=== PATIENT | female | born 1950 | race Caucasian/White ===

== ENCOUNTER 2017-06-05 18:51 | Inpatient (IN) | payer OTHER ==
[~2017-06-05] VITALS: Ht 167.6 cm; Wt 91.6 kg
[~2017-06-05 18:51] MED LIST: AMARYL4 MG PO; AMLODIPINE BESYL5 MG PO; ASPRIN; ATORVASTATIN CA40 MG PO; AZITHROMYCIN250 MG1 PO; AZULFIDINE500 MG PO; B-121000 MC2 PO; BACTRIM,SEPT1 TABLET PO; BUTALB-APAP-CA1 EACH PO; CALCIUM; CARVEDILOL12.5 MG PO; CIPRO500 MG PO; CLOPIDOGREL75 MG PO; CYANOCOBALAM1000 MCG PO; DOXEPIN HCL25 MG PO; DOXYCYCLINE HY100 MG PO; ENBREL50 MG/1 ML SC; ETANERCEPT; FOLIC ACID0.8 M1 PO; HYDROXYCHLOROQ200 MG PO; HYZAAR 100-12.1 EACH PO; JANUVIA25 M1 PO; LANTUS 10100 UNITS/ SC; LANTUS 10100 UNITS/ SQ; LANTUS 3 M100 UNITS1 SC; LANTUS INSULIN; LEVOTHYROXINE150 MCG PO; LEVOTHYROXINE175 MCG PO; LO-DOSE ASPIRIN81 M1 PO; LOSARTAN POTAS100 MG PO; MAALOX ADVANCE1 EACH PO; METOPROLOL TART25 MG PO; NITROFURANTOIN100 MG PO; NITROGLYCERIN0.4 MG PO; NITROSTAT0.4 MG SL; NORVASC2.5 MG PO; NORVASC5 MG PO; NOVOLOG PE100 UNITS/ SC; NYSTATIN15 GM TP; OMEPRAZOLE20 M2 PO; PANTOPRAZOLE SO40 MG PO; PLAQUENIL200 MG PO; PRAVASTATIN SOD40 MG PO; PREDNISOLONE5 MG PO; QUINAPRIL HCL40 MG PO; ROSUVASTATIN CA40 MG PO; SKELAXIN400 M1 PO; SPIRONOLACTONE25 MG PO; SULFASALAZINE500 MG PO; SYNTHROID100 MCG PO; SYNTHROID175 MCG PO; SYNTHROID300 MCG PO; TERCONAZOLE45 GM VG; TESSALON PERLE100 MG PO; TRAMADOL HCL50 MG PO; VITAMIN B-6100 MG PO; VITAMIN B-6250 MG PO; VITAMIN C1000 MG PO; VITAMIN D31000 UNIT PO; ZARXIO300 MCG/0. SC; ZARXIO300 MCG/0. SQ; ZOCOR40 MG PO; ZOFRAN4 MG PO; ZOFRAN8 MG PO; vitamin b-12 PO; vitamin b-6 PO
[2017-06-05 20:20] LABS: HEMATOCRIT 27.6 % (36.0-46.0); MCH 34.1 PG (29.0-34.0); MCHC 33.3 G/DL (30.0-36.0); MCV 102.2 FL (83-99); MEAN PLAT.VOLUME 11.2 uM^3 (9.5-12.4); PLATELET COUNT 135 K/uL (156-360); RBC DIS.WIDTH-CV 15.4 % (11.8-14.6); WHITE BLOOD COUNT 17.7 K/uL (4.1-10.2)
[2017-06-05 20:57] LABS: TROP-I INTERPRETATION NEGATIVE; TROPONIN-I 0.03 ng/mL (0.0-0.30)
[2017-06-05 21:54] LABS: CHLORIDE 110 mEq/L (99-109); POTASSIUM 4.5 mEq/L (3.7-5.4); SODIUM 141 mEq/L (136-147)
[2017-06-05 21:56] LABS: GLUCOSE 119 mg/dL (70-99)
[2017-06-05 21:57] LABS: ANION GAP 9 MEQ/L (2-14)
[2017-06-05 22:00] LABS: GFR ESTIMATE (CALCULATED) 28 mL/min/
[2017-06-05 22:01] LABS: UREA NITROGEN (BUN) 19 mg/dL (9-23)
[2017-06-05 22:11] LABS: POINT-OF-CARE METER ID UU13113702
[2017-06-05] MEDS ORDERED: ZANTAC150 MG PO (23:31)
[2017-06-06 03:12] LABS: TROP-I INTERPRETATION NEGATIVE; TROPONIN-I 0.05 ng/mL (0.0-0.30)
[2017-06-06 04:16] VITALS: BP 149/72
[2017-06-06 07:44] VITALS: BP 153/70
[2017-06-06 07:50] LABS: POINT-OF-CARE METER ID UU14174225
[2017-06-06 11:47] VITALS: BP 133/69
[2017-06-06 15:42] VITALS: BP 126/66
[2017-06-06 17:21] LABS: POINT-OF-CARE METER ID UU13113717
[2017-06-06 20:00] VITALS: BP 130/60
[2017-06-06 20:53] LABS: POINT-OF-CARE METER ID UU13113717
[2017-06-06 23:50] VITALS: BP 125/65
[2017-06-07] VITALS (7 sets, daily range): BP systolic 121–171; BP diastolic 59–84
[2017-06-07 04:10] LABS: HEMATOCRIT 25.9 % (36.0-46.0); MCH 33.6 PG (29.0-34.0); MCHC 32.4 G/DL (30.0-36.0); MCV 103.6 FL (83-99); MEAN PLAT.VOLUME 11.4 uM^3 (9.5-12.4); PLATELET COUNT 112 K/uL (156-360); RBC DIS.WIDTH-CV 15.8 % (11.8-14.6); RBC DIS.WIDTH-SD 60.8 % (39-53); WHITE BLOOD COUNT 17.2 K/uL (4.1-10.2)
[2017-06-07 04:21] LABS: CHLORIDE 107 mEq/L (99-109); POTASSIUM 4.5 mEq/L (3.7-5.4); SODIUM 138 mEq/L (136-147)
[2017-06-07 04:24] LABS: ANION GAP 5 MEQ/L (2-14)
[2017-06-07 04:26] LABS: GFR ESTIMATE (CALCULATED) 24 mL/min/
[2017-06-07 04:27] LABS: UREA NITROGEN (BUN) 25 mg/dL (9-23)
[2017-06-07 04:30] LABS: GLUCOSE 51 mg/dL (70-99)
[2017-06-07 04:31] LABS: TROP-I INTERPRETATION POSITIVE; TROPONIN-I 1.35 ng/mL (0.0-0.30)
[2017-06-07 07:02] LABS: INTER. NORMALIZED RATIO 1.2; PROTHROMBIN TIME 12.7 SEC (10.2-12.9)
[2017-06-07 07:04] LABS: PTT 30.6 SEC (25-37)
[2017-06-07 07:34] LABS: POINT-OF-CARE METER ID UU13113717
[2017-06-07 08:16] LABS: POINT-OF-CARE METER ID UU13113717
[2017-06-07 10:26] LABS: POINT-OF-CARE METER ID UU13113717
[2017-06-07 11:05] LABS: ADD MIUA? YES; BILIRUBIN NEGATIVE; BLOOD NEGATIVE; COLOR YELLOW ((YELLOW)); GLUCOSE (STRIP) NEGATIVE; KETONES NEGATIVE; LEUKOCYTES NEGATIVE; NITRITE NEGATIVE; PROTEIN (STRIP) 100; SPECIFIC GRAVITY 1.008 (1.000-1.030); UROBILINOGEN 0.2 MG/DL (0.2-1.0)
[2017-06-07 11:14] LABS: BACTERIA NONE SEEN /HPF; EPITHELIAL CELLS RARE /HPF; MUCUS TRACE /LPF; RED BLOOD CELLS 20-30 /HPF (0-5); UCUL ADDED? YES
[2017-06-07 11:38] LABS: TROP-I INTERPRETATION POSITIVE; TROPONIN-I 0.96 ng/mL (0.0-0.30)
[2017-06-07 11:57] LABS: POINT-OF-CARE METER ID UU13113717
[2017-06-07 15:41] LABS: POINT-OF-CARE METER ID UU14188625
[2017-06-07 16:41] LABS: TROP-I INTERPRETATION POSITIVE
[2017-06-07 16:42] LABS: TROPONIN-I 0.78 ng/mL (0.0-0.30)
[2017-06-07 21:20] LABS: POINT-OF-CARE METER ID UU14188625
[2017-06-07 23:53] LABS: POINT-OF-CARE METER ID UU14188625
[2017-06-08 03:27] VITALS: BP 126/58
[2017-06-08 05:47] LABS: POINT-OF-CARE METER ID UU13113717
[2017-06-08 07:52] VITALS: BP 130/62
[2017-06-08 10:47] LABS: ANION GAP 11 MEQ/L (2-14); CHLORIDE 103 MEQ/L (99-109); GFR ESTIMATE (CALCULATED) 22 mL/min/; POTASSIUM 4.7 MEQ/L (3.7-5.4); SAMPLE HEMOLYSIS CHECK 0; SAMPLE ICTERIC CHECK 0; SAMPLE LIPEMIA CHECK 0; SODIUM 137 MEQ/L (136-147); UREA NITROGEN (BUN) 27 mg/dL (9-23)
[2017-06-08 10:48] LABS: GLUCOSE 198 mg/dL (70-99)
[2017-06-08 12:47] VITALS: BP 122/63
[2017-06-08 13:30] LABS: POINT-OF-CARE METER ID UU13113717
[2017-06-08 15:19] LABS: POINT-OF-CARE METER ID UU13113717
[2017-06-08 15:52] VITALS: BP 162/77
[2017-06-08 17:50] LABS: POINT-OF-CARE METER ID UU13113717
[2017-06-08 19:46] VITALS: BP 112/53
[2017-06-08 21:47] LABS: POINT-OF-CARE METER ID UU13113717
[2017-06-08 23:45] VITALS: BP 108/58
[2017-06-09 04:10] VITALS: BP 133/71
[2017-06-09 08:24] LABS: POINT-OF-CARE METER ID UU13113717
[2017-06-09 08:48] VITALS: BP 101/54
[2017-06-09 08:52] LABS: POINT-OF-CARE METER ID UU14188625
[2017-06-09 10:05] LABS: POINT-OF-CARE METER ID UU14188625
[2017-06-09 12:06] VITALS: BP 109/56
[2017-06-09 13:09] LABS: EOSINOPHIL (%) 0 % (0-5); HEMATOCRIT 24.5 % (36.0-46.0); IMMATURE GRANULOCYTE (%) 0.9 % (0.0-0.7); IMMATURE GRANULOCYTE COUNT 0.2 K/uL; INSTRUMENT ABS NEUTROPHIL CT 19.6 K/uL; LYMPHOCYTE COUNT 0.8 K/uL (1.0-2.8); MCHC 33.5 G/DL (30.0-36.0); MCV 104.7 FL (83-99); MONOCYTE (%) 3.5 % (3-12); MONOCYTE COUNT 0.8 K/uL (0-0.8); NEUTROPHIL (%) 91.7 % (45-76); NEUTROPHIL COUNT 19.6 K/uL (1.8-6.4); PLATELET COUNT 114 K/uL (156-360); RBC DIS.WIDTH-CV 15.4 % (11.8-14.6); RBC DIS.WIDTH-SD 58.4 % (39-53); RED BLOOD COUNT 2.34 M/uL (3.80-5.20); WHITE BLOOD COUNT 21.3 K/uL (4.1-10.2)
[2017-06-09 13:54] LABS: ALKALINE PHOSPHATASE 146 IU/L (3-129); ANION GAP 9 MEQ/L (2-14); CHLORIDE 99 MEQ/L (99-109); GFR ESTIMATE (CALCULATED) 19 mL/min/; GLUCOSE 80 mg/dL (70-99); LIPASE 3 U/L (1.0-51.0); POTASSIUM 4.2 MEQ/L (3.7-5.4); SAMPLE HEMOLYSIS CHECK 0; SAMPLE ICTERIC CHECK 0; SAMPLE LIPEMIA CHECK 0; SODIUM 131 MEQ/L (136-147); TOTAL BILIRUBIN 0.6 MG/DL (0.0-1.0); UREA NITROGEN (BUN) 39 mg/dL (9-23)
[2017-06-09] MEDS ORDERED: FUROSEMIDE40 MG PO (14:10)
[2017-06-09] MEDS ORDERED: MIRALAX255 GM PO (14:11)
[2017-06-09] MEDS ORDERED: COLACE100 MG PO (14:11)
[2017-06-09 15:54] LABS: POINT-OF-CARE METER ID UU14188625
== END 2017-06-09 16:58 | disposition home or self-care (01) | DRG 281 ==
LOC: EME 18:51 → 5SOUTH 06-06 01:04 → EDOF 06-06 01:04 → ENRESERV 06-06 01:11 → 5SOUTH 06-06 03:15
PROVIDERS: Emergency Medicine; Hospitalist; Internal Medicine; Physician Assistant Medical
DX: I50.41 Acute combined systolic (congestive) and diastolic (congestive) heart failure (principal); I21.4 Non-ST elevation (NSTEMI) myocardial infarction; E11.649 Type 2 diabetes mellitus with hypoglycemia without coma; E11.22 Type 2 diabetes mellitus with diabetic chronic kidney disease; J98.11 Atelectasis; K80.20 Calculus of gallbladder without cholecystitis without obstruction; K59.00 Constipation, unspecified; I13.0 Hypertensive heart and chronic kidney disease with heart failure and stage 1 through stage 4 chronic kidney disease, or unspecified chronic kidney disease; K21.9 Gastro-esophageal reflux disease without esophagitis; I44.0 Atrioventricular block, first degree; G89.29 Other chronic pain; N18.1 Chronic kidney disease, stage 1; I08.2 Rheumatic disorders of both aortic and tricuspid valves; R05 Cough; D72.829 Elevated white blood cell count, unspecified; I27.2 Other secondary pulmonary hypertension; D69.6 Thrombocytopenia, unspecified; D64.9 Anemia, unspecified; K57.90 Diverticulosis of intestine, part unspecified, without perforation or abscess without bleeding; I35.0 Nonrheumatic aortic (valve) stenosis; M06.9 Rheumatoid arthritis, unspecified; E78.5 Hyperlipidemia, unspecified; F32.9 Major depressive disorder, single episode, unspecified; I25.10 Atherosclerotic heart disease of native coronary artery without angina pectoris; Z98.61 Coronary angioplasty status; Z95.1 Presence of aortocoronary bypass graft; Z79.4 Long term (current) use of insulin; Z79.82 Long term (current) use of aspirin
CPT/HCPCS: 71020; 71250; 74000; 74176; 80048; 80053; 81003; 82378; 82948; 83690; 83880; 84484; 85025; 85027; 85379; 85610; 85730; 86301 90; 86304; 87040; 87086; 93005; 93306; 93971; 94760; 94799; 99281; 99285; J1644; J1815; J1940; J2405

== ENCOUNTER 2017-06-18 12:57 | Observation (INO) | payer OTHER ==
[~2017-06-18] VITALS: Ht 170.2 cm; Wt 83.3 kg
[~2017-06-18 12:57] MED LIST changes: +COLACE100 MG PO; +FUROSEMIDE40 MG PO; +MIRALAX255 GM PO; +ZANTAC150 MG PO
[2017-06-18 15:36] LABS: INTER. NORMALIZED RATIO 1.2; PROTHROMBIN TIME 13.4 SEC (10.2-12.9)
[2017-06-18 15:37] LABS: HEMATOCRIT 25.4 % (36.0-46.0); MCHC 33.9 G/DL (30.0-36.0); MCV 100.4 FL (83-99); MEAN PLAT.VOLUME 10.8 uM^3 (9.5-12.4); PLATELET COUNT 172 K/uL (156-360); RBC DIS.WIDTH-CV 14.4 % (11.8-14.6); RBC DIS.WIDTH-SD 52.2 % (39-53); RED BLOOD COUNT 2.53 M/uL (3.80-5.20); WHITE BLOOD COUNT 10.9 K/uL (4.1-10.2)
[2017-06-18 15:38] LABS: PTT 20.1 SEC (25-37)
[2017-06-18 15:41] LABS: CHLORIDE 102 mEq/L (99-109); POTASSIUM 3.8 mEq/L (3.7-5.4); SODIUM 137 mEq/L (136-147)
[2017-06-18 15:44] LABS: GLUCOSE 328 mg/dL (70-99)
[2017-06-18 15:45] LABS: ANION GAP 12 MEQ/L (2-14)
[2017-06-18 15:46] LABS: TOTAL BILIRUBIN 0.4 mg/dL (0.0-1.0)
[2017-06-18 15:47] LABS: ALKALINE PHOSPHATASE 141 IU/L (3-129); GFR ESTIMATE (CALCULATED) 24 mL/min/
[2017-06-18 15:48] LABS: UREA NITROGEN (BUN) 40 mg/dL (9-23)
[2017-06-18 15:56] LABS: TROP-I INTERPRETATION NEGATIVE; TROPONIN-I 0.05 ng/mL (0.0-0.30)
[2017-06-18] MEDS ORDERED: FUROSEMIDE40 MG PO (17:48)
[2017-06-18] MEDS ORDERED: MIRALAX17 GM PO (17:48)
[2017-06-18] MEDS ORDERED: MEDROL4 MG PO (17:53)
[2017-06-18 20:29] VITALS: BP 161/69
[2017-06-18 21:50] LABS: ADD MIUA? YES; BILIRUBIN NEGATIVE; BLOOD NEGATIVE; COLOR YELLOW ((YELLOW)); GLUCOSE (STRIP) >=500; KETONES NEGATIVE; LEUKOCYTES NEGATIVE; NITRITE NEGATIVE; PROTEIN (STRIP) >=500; SPECIFIC GRAVITY 1.014 (1.000-1.030); UROBILINOGEN 0.2 MG/DL (0.2-1.0)
[2017-06-18 21:59] LABS: BACTERIA NONE SEEN /HPF; EPITHELIAL CELLS RARE /HPF; MUCUS NONE SEEN /LPF; RED BLOOD CELLS 0-5 /HPF (0-5); WHITE BLOOD CELLS 0-5 /HPF (0-5)
[2017-06-18 22:13] LABS: TROP-I INTERPRETATION NEGATIVE; TROPONIN-I 0.07 ng/mL (0.0-0.30)
[2017-06-19 00:40] VITALS: BP 157/72
[2017-06-19 04:23] VITALS: BP 135/63
[2017-06-19 04:48] LABS: HEMATOCRIT 23.8 % (36.0-46.0); MCH 33.5 PG (29.0-34.0); MCHC 33.6 G/DL (30.0-36.0); MCV 99.6 FL (83-99); MEAN PLAT.VOLUME 10.9 uM^3 (9.5-12.4); PLATELET COUNT 135 K/uL (156-360); RBC DIS.WIDTH-CV 14.3 % (11.8-14.6); RED BLOOD COUNT 2.39 M/uL (3.80-5.20); WHITE BLOOD COUNT 3.8 K/uL (4.1-10.2)
[2017-06-19 05:01] LABS: CHLORIDE 102 mEq/L (99-109); POTASSIUM 3.4 mEq/L (3.7-5.4); SODIUM 136 mEq/L (136-147)
[2017-06-19 05:02] LABS: GLUCOSE 283 mg/dL (70-99)
[2017-06-19 05:04] LABS: ANION GAP 9 MEQ/L (2-14)
[2017-06-19 05:06] LABS: GFR ESTIMATE (CALCULATED) 25 mL/min/
[2017-06-19 05:07] LABS: UREA NITROGEN (BUN) 37 mg/dL (9-23)
[2017-06-19 05:10] LABS: TROP-I INTERPRETATION NEGATIVE; TROPONIN-I 0.06 ng/mL (0.0-0.30)
[2017-06-19 06:56] VITALS: BP 164/70
[2017-06-19 11:37] VITALS: BP 138/65
[2017-06-19] MEDS ORDERED: AMLODIPINE BESYL5 MG PO (11:49)
[2017-06-19] MEDS ORDERED: PEPCID40 MG PO (11:49)
== END 2017-06-19 13:11 | disposition home or self-care (01) ==
LOC: EME 12:57 → EDOF 18:47 → 5WEST 18:47 → ENRESERV 18:48 → 5WEST 20:09
PROVIDERS: Emergency Medicine; Hospitalist
DX: R07.89 Other chest pain (principal); I13.0 Hypertensive heart and chronic kidney disease with heart failure and stage 1 through stage 4 chronic kidney disease, or unspecified chronic kidney disease; I50.23 Acute on chronic systolic (congestive) heart failure; I25.2 Old myocardial infarction; E11.22 Type 2 diabetes mellitus with diabetic chronic kidney disease; N18.9 Chronic kidney disease, unspecified; I25.10 Atherosclerotic heart disease of native coronary artery without angina pectoris; Z95.1 Presence of aortocoronary bypass graft; Z95.5 Presence of coronary angioplasty implant and graft; I27.2 Other secondary pulmonary hypertension; E11.9 Type 2 diabetes mellitus without complications; M06.9 Rheumatoid arthritis, unspecified; G89.4 Chronic pain syndrome; E78.5 Hyperlipidemia, unspecified; D64.9 Anemia, unspecified; I25.5 Ischemic cardiomyopathy
CPT/HCPCS: 71020; 80048; 80053; 81003; 83880; 84484; 85027; 85610; 85730; 93005; 93970; 99281; 99284; G0378; J1644; J1940; J7509; S0028

== ENCOUNTER 2017-12-19 11:22 | Observation (INO) | payer OTHER ==
[~2017-12-19] VITALS: Ht 170.2 cm; Wt 71.4 kg
[~2017-12-19 11:22] MED LIST changes: +MEDROL4 MG PO; +MIRALAX17 GM PO; +PEPCID40 MG PO
[2017-12-19 12:50] LABS: PLATELET COUNT 101 K/uL (156-360)
[2017-12-19 12:56] LABS: HEMATOCRIT 38.3 % (36.0-46.0); HEMOGLOBIN 12.6 G/DL (11.9-15.5); MCH 30.6 PG (29.0-34.0); MCHC 32.9 G/DL (30.0-36.0); RBC DIS.WIDTH-CV 14.6 % (11.8-14.6); RBC DIS.WIDTH-SD 49.6 % (39-53); RED BLOOD COUNT 4.12 M/uL (3.80-5.20)
[2017-12-19 12:57] LABS: WHITE BLOOD COUNT 38.1 K/uL (4.1-10.2)
[2017-12-19 13:10] LABS: CHLORIDE 102 mEq/L (99-109); SODIUM 141 mEq/L (136-147)
[2017-12-19 13:11] LABS: GLUCOSE 205 mg/dL (70-99)
[2017-12-19 13:15] LABS: CREATININE 2.3 mg/dL (0.6-1.3); GFR ESTIMATE (CALCULATED) 22 mL/min/
[2017-12-19 13:16] LABS: UREA NITROGEN (BUN) 30 mg/dL (9-23)
[2017-12-19 13:20] LABS: TROP-I INTERPRETATION NEGATIVE; TROPONIN-I 0.03 ng/mL (0.0-0.30)
[2017-12-19] MEDS ORDERED: AMLODIPINE BESY10 MG PO (16:15)
[2017-12-19] MEDS ORDERED: PANTOPRAZOLE SO20 MG PO (16:16)
[2017-12-19] MEDS ORDERED: PANTOPRAZOLE SO40 MG PO (16:17)
[2017-12-19] MEDS ORDERED: LOSARTAN POTASS25 MG PO (16:17)
[2017-12-19] MEDS ORDERED: ENBREL50 MG/1 ML SC (16:18)
[2017-12-19] MEDS ORDERED: RANITIDINE HCL150 MG PO (16:19)
[2017-12-19] MEDS ORDERED: FUROSEMIDE20 MG PO (16:20)
[2017-12-19] MEDS ORDERED: ONDANSETRON HCL4 MG PO (16:24)
[2017-12-19] MEDS ORDERED: DOCUSATE SODIU100 MG PO (16:27)
[2017-12-19] MEDS ORDERED: C-10001000 M1 PO (16:29)
[2017-12-19 16:31] VITALS: BP 185/75
[2017-12-19] MEDS ORDERED: PROCRIT2000 UNIT1 IV (16:50)
[2017-12-19] MEDS ORDERED: ZARXIO300 MCG/0. SC (16:52)
[2017-12-19 19:00] VITALS: BP 149/67
[2017-12-19 19:16] LABS: TROP-I INTERPRETATION NEGATIVE; TROPONIN-I 0.03 ng/mL (0.0-0.30)
[2017-12-19 23:41] VITALS: BP 136/64
[2017-12-20 01:22] LABS: TROP-I INTERPRETATION NEGATIVE; TROPONIN-I 0.03 ng/mL (0.0-0.30)
[2017-12-20 04:04] VITALS: BP 124/60
[2017-12-20 07:36] VITALS: BP 153/69
[2017-12-20 12:28] VITALS: BP 136/64
== END 2017-12-20 16:50 | disposition home or self-care (01) ==
LOC: EME 11:22 → EDOF 13:56 → 5WEST 13:56 → ENRESERV 13:57 → 5WEST 16:17
PROVIDERS: Internal Medicine
DX: R07.9 Chest pain, unspecified (principal); I12.9 Hypertensive chronic kidney disease with stage 1 through stage 4 chronic kidney disease, or unspecified chronic kidney disease; N18.9 Chronic kidney disease, unspecified; E11.22 Type 2 diabetes mellitus with diabetic chronic kidney disease; I25.10 Atherosclerotic heart disease of native coronary artery without angina pectoris; Z95.1 Presence of aortocoronary bypass graft; Z95.5 Presence of coronary angioplasty implant and graft; E78.5 Hyperlipidemia, unspecified; G43.909 Migraine, unspecified, not intractable, without status migrainosus; M06.9 Rheumatoid arthritis, unspecified; G89.29 Other chronic pain; Z88.5 Allergy status to narcotic agent; Z88.1 Allergy status to other antibiotic agents; Z82.49 Family history of ischemic heart disease and other diseases of the circulatory system; Z80.51 Family history of malignant neoplasm of kidney; Z79.82 Long term (current) use of aspirin; Z79.899 Other long term (current) drug therapy
CPT/HCPCS: 71046; 80048; 82948; 84484; 85027; 93005; 99281; 99285; G0378; J1650; J1815

== ENCOUNTER → 2018-03-12 | Outpatient (CLI) | payer OTHER ==
[~2018-03-12] MED LIST changes: +AMLODIPINE BESY10 MG PO; +C-10001000 M1 PO; +DOCUSATE SODIU100 MG PO; +ENBREL50 MG/1 M1 SC; +FUROSEMIDE20 MG PO; +LOSARTAN POTASS25 MG PO; +ONDANSETRON HCL4 MG PO; +PANTOPRAZOLE SO20 MG PO; +PREDNISONE10 MG PO; +PROBIOTIC1 EAC1 PO; +PROCRIT2000 UNIT1 IV; +RANITIDINE HCL150 MG PO; +SINEQUAN25 MG PO; +ZUPLENZ4 MG PO
[2018-03-12 10:50] LABS: HEMATOCRIT 34.5 % (36.0-46.0); HEMOGLOBIN 11.1 G/DL (11.9-15.5); MCH 31.7 PG (29.0-34.0); MCHC 32.2 G/DL (30.0-36.0); MCV 98.6 FL (83-99); PLATELET COUNT 52 K/uL (156-360); RBC DIS.WIDTH-CV 16.7 % (11.8-14.6); RBC DIS.WIDTH-SD 59.9 % (39-53); WHITE BLOOD COUNT 2.4 K/uL (4.1-10.2)
[2018-03-12 10:58] LABS: PTT 28.7 SEC (25-37)
[2018-03-12 11:21] LABS: ABS NEUTROPHIL COUNT 1.7; ANISOCYTOSIS 1+; BAND NEUTROPHILS 3.5 % (0-8.0); BASOPHILS 0.9 %; EOSINOPHIL ABS CT 0.2; EOSINOPHILS 7.1 % (0-5.0); LYMPHOCYTES 17.7 % (15.0-45.0); MACROCYTES 1+; MONOCYTES 1.8 % (0-9.0); PLAT.SUFFICIENCY DECREASED; POIKILOCYTOSIS 1+
[2018-03-14 16:49] LABS: CLINICAL INFORMATION NOT PROVIDED; NUMBER OF MARKERS 22; SPECIMEN TYPE BONE MARROW; SPECIMEN VIABILITY 85
== END | disposition home or self-care (01) ==
LOC: OPR 07:36 → EDSTATUS 08:00 → OPR 08:00
PROVIDERS: Anesthesiology
PROC: 07DR3ZX Extraction of Iliac Bone Marrow, Percutaneous Approach, Diagnostic (ICD-10-PCS; principal; 2018-03-12)
DX: D69.6 Thrombocytopenia, unspecified (principal); M06.9 Rheumatoid arthritis, unspecified; I12.9 Hypertensive chronic kidney disease with stage 1 through stage 4 chronic kidney disease, or unspecified chronic kidney disease; E11.22 Type 2 diabetes mellitus with diabetic chronic kidney disease; N18.9 Chronic kidney disease, unspecified; D63.1 Anemia in chronic kidney disease; K75.81 Nonalcoholic steatohepatitis (NASH); E11.42 Type 2 diabetes mellitus with diabetic polyneuropathy; I25.10 Atherosclerotic heart disease of native coronary artery without angina pectoris; Z95.1 Presence of aortocoronary bypass graft; Z79.899 Other long term (current) drug therapy
CPT/HCPCS: 77012; 82948; 85007; 85025; 85027; 85610; 85730; J3010